=== PATIENT | male | born 1930 | race Asian ===

== ENCOUNTER 2019-11-04 19:37 | Inpatient (IN) | payer MEDICARE, OTHER ==
[~2019-11-04] VITALS: Ht 152.4 cm; Wt 57.1 kg
[2019-11-04] MEDS ORDERED: ROSU20TA23 PO (19:53)
[2019-11-04] MEDS ORDERED: METF-960 PO (19:53)
[2019-11-04] MEDS ORDERED: ASPI-1111 PO (19:53)
[2019-11-04] MEDS ORDERED: FINA-27 PO (19:53)
[2019-11-04] MEDS ORDERED: MIRT-89 PO (19:53)
[2019-11-04] MEDS ORDERED: ISOS20TA7 PO (19:53)
[2019-11-04] MEDS ORDERED: TAMS-13 PO (19:53)
[2019-11-04] MEDS ORDERED: METO25 PO (19:53)
[2019-11-04 20:19] LABS: BASOPHILS % (AUTO) 0.3 % (0.0-2.0); EOSINOPHILS % (AUTO) 0 % (1.0-6.0); HEMATOCRIT 31.1 % (41-53); HEMOGLOBIN 10.3 g/dL (13.5-17.5); LYMPHOCYTES # (AUTO) 0.5 K/uL (1.0-4.8); LYMPHOCYTES % (AUTO) 11.6 % (22.0-44.0); MEAN CORPUSCULAR HEMOGLOBIN 31.2 pg (26.0-34.0); MEAN CORPUSCULAR VOLUME 95 fL (80-100); MONOCYTES # (AUTO) 0.5 K/uL (0.1-1.0); MONOCYTES % (AUTO) 11.2 % (2.0-9.0); NEUTROPHILS # (AUTO) 3.2 K/uL (1.8-7.7); NEUTROPHILS % (AUTO) 76.9 % (40.0-70.0); PLATELET COUNT (AUTO) 164 K/uL (150-450); RED BLOOD CELL COUNT(AUTO) 3.29 MIL/uL (4.50-5.90); RED CELL DISTRIBUTION WIDTH 14.8 % (11.5-14.5)
[2019-11-04 20:29] LABS: ANION GAP 12 mmol/L (8-16); CALCIUM, TOTAL 9.2 mg/dL (8.8-10.5); CARBON DIOXIDE 22 mmol/L (22-29); CHLORIDE 103 mmol/L (98-107); CREATININE 2.64 mg/dL (0.60-1.30); GLOMERULAR FILTR. RATE CALC 23 mL/min (>60); GLUCOSE,RANDOM 108 mg/dL (70-110); SODIUM SERUM 137 mmol/L (136-145); UREA NITROGEN, BLOOD 37 mg/dL (7-18)
[2019-11-04 20:35] LABS: ALANINE AMINOTRANSFERASE 38 U/L (12-78); ALBUMIN 3.4 g/dL (3.4-5.0); ALKALINE PHOSPHATASE 72 U/L (46-116); ASPARTATE AMINOTRANSFERASE 42 U/L (15-37)
[2019-11-04 20:39] LABS: B-TYPE NATRIURETIC PEPTIDE 145 pg/mL (0-100)
[2019-11-04 20:49] LABS: BILIRUBIN,TOTAL 0.3 mg/dL (0.1-1.0)
[2019-11-04 20:59] LABS: LACTIC ACID 2.1 mmol/L (0.4-2.0)
[2019-11-04] MEDS ORDERED: ZOLPIDEM TARTRATE 5 MG TABLET PO PRN (22:30)
[2019-11-04] MEDS ORDERED: ONDANSETRON HCL 4 MG/2 ML VIAL IVP PRN (22:30)
[2019-11-04] MEDS ORDERED: HYDROXYCHLOROQUINE SULFATE 200 MG TABLET PO SCH (22:30)
[2019-11-04] MEDS ORDERED: HYDROCODONE/ACETAMINOPHEN 5-325 MG TABLET PO PRN (22:30)
[2019-11-04] MEDS ORDERED: MAGNESIUM HYDROXIDE SUSPENSION 30 ML UDCUP PO PRN (22:30)
[2019-11-04] MEDS ORDERED: DEXTROSE 50%-WATER 25 GM/50 ML SYRINGE IVP PRN (22:30)
[2019-11-04] MEDS ORDERED: BISACODYL 10 MG RECTAL RECTAL SUPPOSITORY PR PRN (22:30)
[2019-11-04 22:42] LABS: APPEARANCE,URINE CLEAR (CLEAR); BILIRUBIN,URINE NEGATIVE (NEGATIVE); GLUCOSE, URINE (UA) NEGATIVE (NEGATIVE); KETONES,URINE NEGATIVE (NEGATIVE); LEUKOCYTE ESTERASE ,URINE NEGATIVE (NEGATIVE); NITRATE,URINE NEGATIVE (NEGATIVE); OCCULT BLOOD,URINE LARGE (NEGATIVE); PH,URINE 6.5 (5.0-8.0); PROTEIN,URINE SEE CONFIRM (NEGATIVE); UROBILINOGEN,URINE 0.2 mg/dL (<=1.0)
[2019-11-04 22:53] LABS: SULFOSALICYLIC ACID,URINE 3+ (Negative)
[2019-11-04 22:55] LABS: WBC,URINE 0-2 /HPF (0-5)
[2019-11-04 22:56] LABS: BACTERIA,URINE Rare /HPF (None Seen); SQUAMOUS EPITHELIAL CELL,UR Rare /LPF (None Seen)
[2019-11-04 22:58] LABS: D-DIMER 0.55 mg/L FEU (0.00-0.50)
[2019-11-04 23:09] LABS: GLUCOMETER DEV NAME(LOC) AHU.; GLUCOSE,POINT OF CARE 111 MG/DL (70-110)
[2019-11-04 23:10] LABS: C-REACTIVE PROTEIN QUANT 1.64 mg/dL (0.00-0.30)
[2019-11-05] VITALS (7 sets, daily range): BP systolic 95–137; BP diastolic 48–75
[2019-11-05] MEDS: HEPARIN SODIUM,PORCINE 5,000 UNITS/ML VIAL SQ SCH ×4 (00:24→23:58)
[2019-11-05] MEDS: ACETAMINOPHEN 325 MG TABLET PO PRN (01:14)
[2019-11-05 06:51] LABS: GLUCOMETER DEV NAME(LOC) 5N.1; GLUCOSE,POINT OF CARE 82 MG/DL (70-110)
[2019-11-05 07:09] LABS: BASOPHILS % (AUTO) 0.4 % (0.0-2.0); EOSINOPHILS % (AUTO) 0.2 % (1.0-6.0); HEMATOCRIT 29.9 % (41-53); HEMOGLOBIN 9.9 g/dL (13.5-17.5); LYMPHOCYTES # (AUTO) 1.3 K/uL (1.0-4.8); LYMPHOCYTES % (AUTO) 36.3 % (22.0-44.0); MEAN CORPUSCULAR HEMOGLOBIN 31.7 pg (26.0-34.0); MEAN CORPUSCULAR HGB CONC 33.2 G/dL (31.0-37.0); MEAN CORPUSCULAR VOLUME 96 fL (80-100); MONOCYTES # (AUTO) 0.7 K/uL (0.1-1.0); MONOCYTES % (AUTO) 18.1 % (2.0-9.0); NEUTROPHILS # (AUTO) 1.6 K/uL (1.8-7.7); PLATELET COUNT (AUTO) 146 K/uL (150-450); RED BLOOD CELL COUNT(AUTO) 3.13 MIL/uL (4.50-5.90); RED CELL DISTRIBUTION WIDTH 14.3 % (11.5-14.5)
[2019-11-05 07:22] LABS: CALCIUM, TOTAL 8.9 mg/dL (8.8-10.5); CREATININE 2.31 mg/dL (0.60-1.30); POTASSIUM 3.8 mmol/L (3.5-5.1)
[2019-11-05] MEDS: ROSUVASTATIN CALCIUM 20 MG TABLET PO SCH (08:46)
[2019-11-05] MEDS: ASPIRIN 81 MG EC TABLET PO SCH (08:46)
[2019-11-05] MEDS: THIAMINE HCL 100 MG/ML 2ML VIAL IVP SCH ×2 (08:46→21:58)
[2019-11-05] MEDS: DOCUSATE SODIUM 100 MG CAPSULE PO SCH ×2 (08:46→21:57)
[2019-11-05] MEDS: ISOSORBIDE MONONITRATE 30 MG ER TABLET PO SCH (08:47)
[2019-11-05] MEDS: PANTOPRAZOLE SODIUM 40 MG DR TABLET PO SCH (08:47)
[2019-11-05] MEDS: ASCORBIC ACID 500 MG TABLET PO SCH ×3 (08:47→21:57)
[2019-11-05] MEDS: AZITHROMYCIN 500 MG TABLET PO SCH (08:48)
[2019-11-05] MEDS ORDERED: HYDROXYCHLOROQUINE SULFATE 200 MG TABLET PO ONE (10:30)
[2019-11-05 11:45] LABS: GLUCOMETER DEV NAME(LOC) 5S.2A; GLUCOSE,POINT OF CARE 113 MG/DL (70-110)
[2019-11-05 12:07] LABS: ABG A-A DIFF O2 46.7 mmHg (10-20.0); ABG CARBOXYHEMOGLOBIN 0.1 % (0.0-1.5); ABG HCO3 20.3 mmol/L (22.0-26.0); ABG METHEMOGLOBIN 0.3 % (0.0-1.5); ABG OXYGEN CONTENT 13.7 mL/dL (15.0-23.0); ABG OXYHEMOGLOBIN 93.6 % (94.0-100.0); ABG PCO2 29 mmHg (35-45); ABG TOTAL HEMOGLOBIN 10.4 G/dL (12.0-18.0); O2 DEVICE,BLOOD GAS ROOM AIR (ROOM AIR); PO2, ARTERIAL BG 68.1 mmHg (71.0-79.0); SITE, BLOOD GAS RT RADIAL; SOURCE, BLOOD GAS ARTERIAL; TEMPERATURE, FAHRENHEIT, BG 98.6 FAHREN (96.0-98.6)
[2019-11-05] MEDS ORDERED: SODIUM CHLORIDE 0.9% 500 ML IV ONE (15:23)
[2019-11-05] MEDS: CefTRIAXone 1 GM/DEXTROSE 50 ML IV SCH (15:51)
[2019-11-05] MEDS: HYDROXYCHLOROQUINE SULFATE 200 MG TABLET PO SCH (21:57)
[2019-11-06 04:41] VITALS: BP 113/82
[2019-11-06 07:19] LABS: BASOPHILS % (AUTO) 0.4 % (0.0-2.0); EOSINOPHILS % (AUTO) 0.4 % (1.0-6.0); HEMATOCRIT 30.4 % (41-53); LYMPHOCYTES # (AUTO) 1.2 K/uL (1.0-4.8); LYMPHOCYTES % (AUTO) 30.4 % (22.0-44.0); MEAN CORPUSCULAR HEMOGLOBIN 31.1 pg (26.0-34.0); MEAN CORPUSCULAR HGB CONC 32.8 G/dL (31.0-37.0); MEAN CORPUSCULAR VOLUME 95 fL (80-100); MONOCYTES # (AUTO) 0.5 K/uL (0.1-1.0); MONOCYTES % (AUTO) 12.2 % (2.0-9.0); NEUTROPHILS # (AUTO) 2.3 K/uL (1.8-7.7); NEUTROPHILS % (AUTO) 56.6 % (40.0-70.0); PLATELET COUNT (AUTO) 154 K/uL (150-450); RED BLOOD CELL COUNT(AUTO) 3.21 MIL/uL (4.50-5.90); RED CELL DISTRIBUTION WIDTH 14.8 % (11.5-14.5)
[2019-11-06 07:31] LABS: ALBUMIN 3.1 g/dL (3.4-5.0); BILIRUBIN,TOTAL 0.2 mg/dL (0.1-1.0); C-REACTIVE PROTEIN QUANT 3.67 mg/dL (0.00-0.30); CALCIUM, TOTAL 8.8 mg/dL (8.8-10.5); CREATININE 2.34 mg/dL (0.60-1.30); POTASSIUM 3.7 mmol/L (3.5-5.1); TOTAL PROTEIN, SERUM 7.5 g/dL (6.4-8.2)
[2019-11-06 07:39] VITALS: BP 137/71
[2019-11-06] MEDS: DOCUSATE SODIUM 100 MG CAPSULE PO SCH ×2 (09:15→21:06)
[2019-11-06] MEDS: AZITHROMYCIN 500 MG TABLET PO SCH (09:15)
[2019-11-06] MEDS: ISOSORBIDE MONONITRATE 30 MG ER TABLET PO SCH (09:15)
[2019-11-06] MEDS: HYDROXYCHLOROQUINE SULFATE 200 MG TABLET PO SCH ×2 (09:15→21:05)
[2019-11-06] MEDS: ROSUVASTATIN CALCIUM 20 MG TABLET PO SCH (09:15)
[2019-11-06] MEDS: THIAMINE HCL 100 MG/ML 2ML VIAL IVP SCH ×2 (09:15→21:06)
[2019-11-06] MEDS: HEPARIN SODIUM,PORCINE 5,000 UNITS/ML VIAL SQ SCH ×2 (09:15→16:00)
[2019-11-06] MEDS: ASPIRIN 81 MG EC TABLET PO SCH (09:15)
[2019-11-06] MEDS: PANTOPRAZOLE SODIUM 40 MG DR TABLET PO SCH (09:16)
[2019-11-06] MEDS: ACETAMINOPHEN 325 MG TABLET PO PRN ×3 (09:16→21:05)
[2019-11-06] MEDS: ASCORBIC ACID 500 MG TABLET PO SCH ×3 (09:16→21:05)
[2019-11-06] MEDS: INSULIN LISPRO 100 UNITS/ML SQ PRN (11:48)
[2019-11-06 12:22] VITALS: BP 116/84
[2019-11-06] MEDS: CefTRIAXone 1 GM/DEXTROSE 50 ML IV SCH (15:59)
[2019-11-06 16:14] VITALS: BP 114/54
[2019-11-06 17:43] LABS: GLUCOMETER DEV NAME(LOC) 5S.2A; GLUCOSE,POINT OF CARE 90 MG/DL (70-110)
[2019-11-06 17:43] LABS: GLUCOMETER DEV NAME(LOC) 5N.1; GLUCOSE,POINT OF CARE 92 MG/DL (70-110)
[2019-11-06 17:43] LABS: GLUCOMETER DEV NAME(LOC) 5N.1; GLUCOSE,POINT OF CARE 108 MG/DL (70-110)
[2019-11-06 17:44] LABS: GLUCOMETER DEV NAME(LOC) 5N.1; GLUCOSE,POINT OF CARE 119 MG/DL (70-110)
[2019-11-06 17:44] LABS: GLUCOMETER DEV NAME(LOC) 5N.1; GLUCOSE,POINT OF CARE 114 MG/DL (70-110)
[2019-11-06 20:42] VITALS: BP 134/62
[2019-11-07 00:30] VITALS: BP 108/58
[2019-11-07] MEDS: HEPARIN SODIUM,PORCINE 5,000 UNITS/ML VIAL SQ SCH ×3 (00:46→14:47)
[2019-11-07 05:10] VITALS: BP 118/59
[2019-11-07] MEDS: ACETAMINOPHEN 325 MG TABLET PO PRN ×2 (05:54→08:03)
[2019-11-07 06:59] LABS: BASOPHILS % (AUTO) 0.3 % (0.0-2.0); EOSINOPHILS % (AUTO) 0.1 % (1.0-6.0); HEMATOCRIT 32.5 % (41-53); HEMOGLOBIN 10.7 g/dL (13.5-17.5); LYMPHOCYTES # (AUTO) 1.1 K/uL (1.0-4.8); LYMPHOCYTES % (AUTO) 24.2 % (22.0-44.0); MEAN CORPUSCULAR HEMOGLOBIN 31.1 pg (26.0-34.0); MEAN CORPUSCULAR HGB CONC 32.9 G/dL (31.0-37.0); MEAN CORPUSCULAR VOLUME 95 fL (80-100); MONOCYTES # (AUTO) 0.5 K/uL (0.1-1.0); MONOCYTES % (AUTO) 10.7 % (2.0-9.0); NEUTROPHILS % (AUTO) 64.7 % (40.0-70.0); PLATELET COUNT (AUTO) 158 K/uL (150-450); RED BLOOD CELL COUNT(AUTO) 3.43 MIL/uL (4.50-5.90); RED CELL DISTRIBUTION WIDTH 14.7 % (11.5-14.5)
[2019-11-07 07:19] LABS: C-REACTIVE PROTEIN QUANT 5.31 mg/dL (0.00-0.30); CREATININE 2.76 mg/dL (0.60-1.30); MAGNESIUM 2.1 mg/dL (1.80-2.40); POTASSIUM 4.1 mmol/L (3.5-5.1)
[2019-11-07] MEDS: ISOSORBIDE MONONITRATE 30 MG ER TABLET PO SCH (08:01)
[2019-11-07] MEDS: THIAMINE HCL 100 MG/ML 2ML VIAL IVP SCH ×2 (08:01→22:24)
[2019-11-07] MEDS: ROSUVASTATIN CALCIUM 20 MG TABLET PO SCH (08:01)
[2019-11-07] MEDS: AZITHROMYCIN 500 MG TABLET PO SCH (08:02)
[2019-11-07] MEDS: ASCORBIC ACID 500 MG TABLET PO SCH ×3 (08:02→22:24)
[2019-11-07] MEDS: HYDROXYCHLOROQUINE SULFATE 200 MG TABLET PO SCH ×2 (08:02→22:24)
[2019-11-07] MEDS: DOCUSATE SODIUM 100 MG CAPSULE PO SCH ×2 (08:02→22:24)
[2019-11-07] MEDS: PANTOPRAZOLE SODIUM 40 MG DR TABLET PO SCH (08:02)
[2019-11-07] MEDS: ASPIRIN 81 MG EC TABLET PO SCH (08:02)
[2019-11-07 08:10] LABS: GLUCOMETER DEV NAME(LOC) 5S.2A; GLUCOSE,POINT OF CARE 99 MG/DL (70-110)
[2019-11-07 08:10] LABS: GLUCOMETER DEV NAME(LOC) 5S.2A; GLUCOSE,POINT OF CARE 110 MG/DL (70-110)
[2019-11-07 08:30] VITALS: BP_SYST 11; BP_SYST 111; BP_DIAS 13; BP_DIAS 73
[2019-11-07 08:48] LABS: ERYTHROCYTE SEDIMENTATION RATE 75 MM/HR (0-15)
[2019-11-07] MEDS ORDERED: SODIUM CHLORIDE 0.9% 100 ML ONE (11:45)
[2019-11-07] MEDS: ZINC GLUCONATE 50 MG TABLET PO SCH (11:49)
[2019-11-07] MEDS: INSULIN LISPRO 100 UNITS/ML SQ PRN (12:05)
[2019-11-07 12:30] VITALS: BP_SYST 115; BP_SYST 120; BP_DIAS 64; BP_DIAS 7
[2019-11-07] MEDS ORDERED: SODIUM CHLORIDE 0.9% 250 ML IV ONE (14:37)
[2019-11-07] MEDS: CefTRIAXone 1 GM/DEXTROSE 50 ML IV SCH (14:47)
[2019-11-07 15:58] VITALS: BP 120/64
[2019-11-07 21:30] VITALS: BP 110/65
[2019-11-08 00:32] VITALS: BP 94/63
[2019-11-08] MEDS: ACETAMINOPHEN 325 MG TABLET PO PRN (00:57)
[2019-11-08 05:26] LABS: GLUCOMETER DEV NAME(LOC) 5S.2A; GLUCOSE,POINT OF CARE 119 MG/DL (70-110)
[2019-11-08 05:54] VITALS: BP 98/62
[2019-11-08 06:50] LABS: GLUCOMETER DEV NAME(LOC) 5N.1; GLUCOSE,POINT OF CARE 113 MG/DL (70-110)
[2019-11-08 06:50] LABS: GLUCOMETER DEV NAME(LOC) 5N.1; GLUCOSE,POINT OF CARE 103 MG/DL (70-110)
[2019-11-08 06:50] LABS: GLUCOMETER DEV NAME(LOC) 5N.1; GLUCOSE,POINT OF CARE 109 MG/DL (70-110)
[2019-11-08 08:38] LABS: BASOPHILS % (AUTO) 0.1 % (0.0-2.0); EOSINOPHILS % (AUTO) 0.1 % (1.0-6.0); HEMATOCRIT 28.8 % (41-53); HEMOGLOBIN 9.4 g/dL (13.5-17.5); LYMPHOCYTES # (AUTO) 1.2 K/uL (1.0-4.8); LYMPHOCYTES % (AUTO) 20.5 % (22.0-44.0); MEAN CORPUSCULAR HEMOGLOBIN 31.2 pg (26.0-34.0); MEAN CORPUSCULAR HGB CONC 32.6 G/dL (31.0-37.0); MEAN CORPUSCULAR VOLUME 96 fL (80-100); MONOCYTES # (AUTO) 0.6 K/uL (0.1-1.0); MONOCYTES % (AUTO) 11.4 % (2.0-9.0); NEUTROPHILS # (AUTO) 3.8 K/uL (1.8-7.7); NEUTROPHILS % (AUTO) 67.9 % (40.0-70.0); PLATELET COUNT (AUTO) 150 K/uL (150-450); RED BLOOD CELL COUNT(AUTO) 3.01 MIL/uL (4.50-5.90)
[2019-11-08] MEDS: ZINC GLUCONATE 50 MG TABLET PO SCH (08:50)
[2019-11-08] MEDS: ASCORBIC ACID 500 MG TABLET PO SCH ×3 (08:50→22:17)
[2019-11-08] MEDS: DOCUSATE SODIUM 100 MG CAPSULE PO SCH ×2 (08:51→22:17)
[2019-11-08] MEDS: HYDROXYCHLOROQUINE SULFATE 200 MG TABLET PO SCH ×2 (08:51→22:17)
[2019-11-08] MEDS: PANTOPRAZOLE SODIUM 40 MG DR TABLET PO SCH (08:51)
[2019-11-08] MEDS: AZITHROMYCIN 500 MG TABLET PO SCH (08:51)
[2019-11-08] MEDS: ISOSORBIDE MONONITRATE 30 MG ER TABLET PO SCH (08:51)
[2019-11-08] MEDS: ASPIRIN 81 MG EC TABLET PO SCH (08:51)
[2019-11-08] MEDS: ROSUVASTATIN CALCIUM 20 MG TABLET PO SCH (08:51)
[2019-11-08] MEDS: THIAMINE HCL 100 MG/ML 2ML VIAL IVP SCH ×2 (08:52→22:17)
[2019-11-08 09:13] VITALS: BP 107/66
[2019-11-08 09:16] LABS: ALBUMIN 2.9 g/dL (3.4-5.0); BILIRUBIN,TOTAL 0.2 mg/dL (0.1-1.0); C-REACTIVE PROTEIN QUANT 6.91 mg/dL (0.00-0.30); CALCIUM, TOTAL 8.5 mg/dL (8.8-10.5); CREATININE 4.28 mg/dL (0.60-1.30); POTASSIUM 4.2 mmol/L (3.5-5.1); TOTAL PROTEIN, SERUM 7.2 g/dL (6.4-8.2)
[2019-11-08 10:06] LABS: ERYTHROCYTE SEDIMENTATION RATE 88 MM/HR (0-15)
[2019-11-08 11:09] LABS: LEGIONELLA PNEUMO AG URINE Negative (Negative); ORGANISM ID Not indicated.; S PNEUMO SOURCE Urine; STREP PNEUMONIAE AG URINE Negative (Negative); STREP.PNEUMO BODY FLUID CULT. Not indicated.
[2019-11-08 12:30] VITALS: BP 102/70
[2019-11-08] MEDS: CefTRIAXone 1 GM/DEXTROSE 50 ML IV SCH (12:59)
[2019-11-08 17:17] VITALS: BP 112/67
[2019-11-08 19:57] LABS: GLUCOMETER DEV NAME(LOC) 5N.2; GLUCOSE,POINT OF CARE 107 MG/DL (70-110)
[2019-11-08 22:32] VITALS: BP 104/48
[2019-11-09] MEDS: ACETAMINOPHEN 325 MG TABLET PO PRN (00:27)
[2019-11-09 00:32] VITALS: BP 107/71
[2019-11-09 05:47] VITALS: BP 121/66
[2019-11-09 07:57] LABS: CALCIUM, TOTAL 8.6 mg/dL (8.8-10.5); CREATININE 5.13 mg/dL (0.60-1.30); POTASSIUM 4.1 mmol/L (3.5-5.1)
[2019-11-09 09:00] VITALS: BP 115/62
[2019-11-09] MEDS: DOCUSATE SODIUM 100 MG CAPSULE PO SCH ×2 (09:03→20:49)
[2019-11-09] MEDS: HYDROXYCHLOROQUINE SULFATE 200 MG TABLET PO SCH (09:03)
[2019-11-09] MEDS: ISOSORBIDE MONONITRATE 30 MG ER TABLET PO SCH (09:03)
[2019-11-09] MEDS: THIAMINE HCL 100 MG/ML 2ML VIAL IVP SCH ×2 (09:03→20:47)
[2019-11-09] MEDS: ZINC GLUCONATE 50 MG TABLET PO SCH (09:03)
[2019-11-09] MEDS: ROSUVASTATIN CALCIUM 20 MG TABLET PO SCH (09:04)
[2019-11-09] MEDS: PANTOPRAZOLE SODIUM 40 MG DR TABLET PO SCH (09:04)
[2019-11-09] MEDS: ASCORBIC ACID 500 MG TABLET PO SCH ×3 (09:04→20:49)
[2019-11-09] MEDS: ASPIRIN 81 MG EC TABLET PO SCH (09:06)
[2019-11-09 11:17] VITALS: BP 102/72
[2019-11-09] MEDS: INSULIN LISPRO 100 UNITS/ML SQ PRN ×2 (12:20→18:14)
[2019-11-09] MEDS: SODIUM CHLORIDE 0.45% 1,000 ML IV SCH (12:23)
[2019-11-09 16:16] VITALS: BP 98/52
[2019-11-09] MEDS: CefTRIAXone 1 GM/DEXTROSE 50 ML IV SCH (17:00)
[2019-11-09 21:00] VITALS: BP 109/55
[2019-11-10] VITALS: BP 102/47
[2019-11-10] MEDS: SODIUM CHLORIDE 0.45% 1,000 ML IV SCH (02:27)
[2019-11-10 03:21] LABS: ABG A-A DIFF O2 376.2 mmHg (10-20.0); ABG BASE EXCESS -11.9 mmol/L (-2.0-3.0); ABG CARBOXYHEMOGLOBIN 0.5 % (0.0-1.5); ABG HCO3 15.7 mmol/L (22.0-26.0); ABG METHEMOGLOBIN 0.3 % (0.0-1.5); ABG OXYGEN SATURATION 99.6 % (95.0-98.0); ABG OXYHEMOGLOBIN 98.8 % (94.0-100.0); ABG PCO2 20 mmHg (35-45); ABG PH 7.416 (7.35-7.450); PO2, ARTERIAL BG 173.8 mmHg (71.0-79.0); SOURCE, BLOOD GAS ARTERIAL; TEMPERATURE, FAHRENHEIT, BG 97.8 FAHREN (96.0-98.6)
[2019-11-10 03:22] LABS: ABG TOTAL HEMOGLOBIN 6.9 G/dL (12.0-18.0); O2 DEVICE,BLOOD GAS NON REBREATHER (ROOM AIR); SITE, BLOOD GAS LFT RADIAL
[2019-11-10 04:47] LABS: CALCIUM, TOTAL 8.1 mg/dL (8.8-10.5); CREATININE 6.33 mg/dL (0.60-1.30); POTASSIUM 4.8 mmol/L (3.5-5.1)
[2019-11-10 05:24] LABS: C-REACTIVE PROTEIN QUANT 13.78 mg/dL (0.00-0.30)
[2019-11-10 05:26] LABS: MAGNESIUM 2.7 mg/dL (1.80-2.40); PHOSPHORUS 7.3 mg/dL (2.5-4.9)
[2019-11-10 06:00] LABS: GLUCOMETER DEV NAME(LOC) 5N.1; GLUCOSE,POINT OF CARE 108 MG/DL (70-110)
[2019-11-10 06:00] LABS: GLUCOMETER DEV NAME(LOC) 5N.1; GLUCOSE,POINT OF CARE 193 MG/DL (70-110)
[2019-11-10 06:00] LABS: GLUCOMETER DEV NAME(LOC) 5N.1; GLUCOSE,POINT OF CARE 121 MG/DL (70-110)
[2019-11-10 06:01] LABS: GLUCOMETER DEV NAME(LOC) 5N.1; GLUCOSE,POINT OF CARE 155 MG/DL (70-110)
[2019-11-10 06:01] LABS: GLUCOMETER DEV NAME(LOC) 5N.1; GLUCOSE,POINT OF CARE 147 MG/DL (70-110)
[2019-11-10 07:24] LABS: GLUCOSE,POINT OF CARE 135 MG/DL (70-110)
[2019-11-10 07:57] LABS: D-DIMER 0.53 mg/L FEU (0.00-0.50); PROTHROMBIN TIME 10.2 SEC (9.4-11.6)
[2019-11-10 08:00] VITALS: BP 142/85
[2019-11-10] MEDS: ASCORBIC ACID 500 MG TABLET PO SCH ×4 (08:31→21:00)
[2019-11-10] MEDS: ASPIRIN 81 MG EC TABLET PO SCH (08:31)
[2019-11-10] MEDS: PANTOPRAZOLE SODIUM 40 MG DR TABLET PO SCH (08:31)
[2019-11-10] MEDS: DOCUSATE SODIUM 100 MG CAPSULE PO SCH ×3 (08:31→21:00)
[2019-11-10] MEDS: ROSUVASTATIN CALCIUM 20 MG TABLET PO SCH (08:31)
[2019-11-10] MEDS: THIAMINE HCL 100 MG/ML 2ML VIAL IVP SCH ×2 (08:40→20:52)
[2019-11-10] MEDS: ZINC GLUCONATE 50 MG TABLET PO SCH (09:00)
[2019-11-10] MEDS ORDERED: SODIUM BICARBONATE [ADULT] 8.4% 50 MEQ/50 ML SYRINGE IVP ONE (09:00)
[2019-11-10] MEDS: SODIUM BICARBONATE 150 MEQ in DEXTROSE 5%-WATER 1,000 ML IV SCH (09:16)
[2019-11-10 10:43] LABS: BASOPHILS % (AUTO) 0.2 % (0.0-2.0); EOSINOPHILS % (AUTO) 0 % (1.0-6.0); LYMPHOCYTES # (AUTO) 0.9 K/uL (1.0-4.8); LYMPHOCYTES % (AUTO) 9.1 % (22.0-44.0); MEAN CORPUSCULAR HEMOGLOBIN 31.1 pg (26.0-34.0); MEAN CORPUSCULAR HGB CONC 33.4 G/dL (31.0-37.0); MEAN CORPUSCULAR VOLUME 93 fL (80-100); MONOCYTES # (AUTO) 1.1 K/uL (0.1-1.0); MONOCYTES % (AUTO) 11.5 % (2.0-9.0); NEUTROPHILS # (AUTO) 7.9 K/uL (1.8-7.7); NEUTROPHILS % (AUTO) 79.2 % (40.0-70.0); PLATELET COUNT (AUTO) 211 K/uL (150-450); RED BLOOD CELL COUNT(AUTO) 2.03 MIL/uL (4.50-5.90); RED CELL DISTRIBUTION WIDTH 14.8 % (11.5-14.5)
[2019-11-10 10:51] LABS: HEMOGLOBIN 6.3 g/dL (13.5-17.5)
[2019-11-10 10:52] LABS: HEMATOCRIT 18.9 % (41-53)
[2019-11-10] MEDS ORDERED: SODIUM CHLORIDE 0.9% 250 ML IV ONE (11:51)
[2019-11-10 12:00] VITALS: BP 162/76
[2019-11-10] MEDS: ISOSORBIDE MONONITRATE 30 MG ER TABLET PO SCH (14:24)
[2019-11-10 16:21] LABS: ALBUMIN 2.5 g/dL (3.4-5.0); BILIRUBIN,TOTAL 0.3 mg/dL (0.1-1.0); CALCIUM, TOTAL 7.3 mg/dL (8.8-10.5); CREATININE 5.77 mg/dL (0.60-1.30); POTASSIUM 3.9 mmol/L (3.5-5.1); TOTAL PROTEIN, SERUM 6.7 g/dL (6.4-8.2)
[2019-11-10] MEDS: CefTRIAXone 1 GM/DEXTROSE 50 ML IV SCH (16:52)
[2019-11-10] MEDS: INSULIN LISPRO 100 UNITS/ML SQ PRN (17:24)
[2019-11-10 18:00] VITALS: BP 173/86
[2019-11-10 20:00] VITALS: BP 149/73
[2019-11-10] MEDS: ACETAMINOPHEN 325 MG TABLET PO PRN (20:52)
[2019-11-10 20:58] LABS: GLUCOMETER DEV NAME(LOC) 5N.2; GLUCOSE,POINT OF CARE 126 MG/DL (70-110)
[2019-11-10 20:59] LABS: GLUCOMETER DEV NAME(LOC) 5N.2; GLUCOSE,POINT OF CARE 111 MG/DL (70-110)
[2019-11-10] MEDS: MORPHINE SULFATE 2 MG/ML SYRINGE IVP PRN (21:24)
[2019-11-11] VITALS (7 sets, daily range): BP systolic 94–148; BP diastolic 58–95
[2019-11-11] MEDS: SODIUM BICARBONATE 150 MEQ in DEXTROSE 5%-WATER 1,000 ML IV SCH (00:21)
[2019-11-11 08:01] LABS: GLUCOSE,POINT OF CARE 125 MG/DL (70-110)
[2019-11-11 08:01] LABS: GLUCOSE,POINT OF CARE 152 MG/DL (70-110)
[2019-11-11 08:01] LABS: GLUCOSE,POINT OF CARE 146 MG/DL (70-110)
[2019-11-11 08:03] LABS: GLUCOSE,POINT OF CARE 139 MG/DL (70-110)
[2019-11-11 08:16] LABS: EOSINOPHILS % (AUTO) 0 % (1.0-6.0); HEMATOCRIT 21.2 % (41-53); HEMOGLOBIN 7.1 g/dL (13.5-17.5); LYMPHOCYTES # (AUTO) 0.4 K/uL (1.0-4.8); LYMPHOCYTES % (AUTO) 3.5 % (22.0-44.0); MEAN CORPUSCULAR HEMOGLOBIN 28.9 pg (26.0-34.0); MEAN CORPUSCULAR HGB CONC 33.4 G/dL (31.0-37.0); MEAN CORPUSCULAR VOLUME 87 fL (80-100); MONOCYTES # (AUTO) 0.7 K/uL (0.1-1.0); MONOCYTES % (AUTO) 6.1 % (2.0-9.0); PLATELET COUNT (AUTO) 211 K/uL (150-450); RED BLOOD CELL COUNT(AUTO) 2.45 MIL/uL (4.50-5.90); RED CELL DISTRIBUTION WIDTH 18.4 % (11.5-14.5)
[2019-11-11 08:27] LABS: NEUTROPHILS % (AUTO) 90.4 % (40.0-70.0)
[2019-11-11 08:28] LABS: ALBUMIN 2.3 g/dL (3.4-5.0); BILIRUBIN,TOTAL 0.6 mg/dL (0.1-1.0); CALCIUM, TOTAL 7.2 mg/dL (8.8-10.5); CREATININE 5.2 mg/dL (0.60-1.30); MAGNESIUM 2.1 mg/dL (1.80-2.40); PHOSPHORUS 3.9 mg/dL (2.5-4.9); TOTAL PROTEIN, SERUM 6.4 g/dL (6.4-8.2)
[2019-11-11 08:30] LABS: POTASSIUM 2.9 mmol/L (3.5-5.1)
[2019-11-11] MEDS: ASPIRIN 81 MG EC TABLET PO SCH (09:00)
[2019-11-11] MEDS: PANTOPRAZOLE SODIUM 40 MG DR TABLET PO SCH (09:00)
[2019-11-11] MEDS: ROSUVASTATIN CALCIUM 20 MG TABLET PO SCH (09:00)
[2019-11-11] MEDS: DOCUSATE SODIUM 100 MG CAPSULE PO SCH ×2 (09:00→20:20)
[2019-11-11] MEDS: ASCORBIC ACID 500 MG TABLET PO SCH ×3 (09:00→20:20)
[2019-11-11] MEDS: ISOSORBIDE MONONITRATE 30 MG ER TABLET PO SCH (09:25)
[2019-11-11] MEDS: ZINC GLUCONATE 50 MG TABLET PO SCH (09:25)
[2019-11-11] MEDS: THIAMINE HCL 100 MG/ML 2ML VIAL IVP SCH ×2 (09:26→20:19)
[2019-11-11] MEDS ORDERED: SODIUM CHLORIDE 0.9% 500 ML IV ONE (10:05)
[2019-11-11] MEDS: POTASSIUM CHL 10 MEQ/WATER 50 ML IV SCH ×3 (11:15→13:47)
[2019-11-11] MEDS ORDERED: SODIUM CHLORIDE 0.9% 1,000 ML IV SCH (14:30)
[2019-11-11 15:18] LABS: APPEARANCE,URINE CLEAR (CLEAR); BILIRUBIN,URINE NEGATIVE (NEGATIVE); GLUCOSE, URINE (UA) NEGATIVE (NEGATIVE); KETONES,URINE NEGATIVE (NEGATIVE); LEUKOCYTE ESTERASE ,URINE NEGATIVE (NEGATIVE); NITRATE,URINE NEGATIVE (NEGATIVE); OCCULT BLOOD,URINE MODERATE (NEGATIVE); PH,URINE 7.5 (5.0-8.0); PROTEIN,URINE SEE CONFIRM (NEGATIVE); UROBILINOGEN,URINE 0.2 mg/dL (<=1.0)
[2019-11-11 15:21] LABS: CREATININE,URINE RANDOM 59.3 mg/dL (30.0-125.0); PROTEIN,URINE RANDOM 136 mg/dL (0-11.9); SODIUM,URINE RANDOM 61 mmol/l (20-110); UREA NITROGEN,URINE RANDOM 655 mg/dL (350-1000)
[2019-11-11 15:30] LABS: SULFOSALICYLIC ACID,URINE 2+ (Negative)
[2019-11-11 15:32] LABS: BACTERIA,URINE None Seen /HPF (None Seen); RBC,URINE 0-2 /HPF (0-2); SQUAMOUS EPITHELIAL CELL,UR Few /LPF (None Seen); WBC,URINE 0-2 /HPF (0-5)
[2019-11-11 15:47] LABS: GLUCOSE,POINT OF CARE 129 MG/DL (70-110)
[2019-11-11] MEDS: PIPERACILLIN SODIUM/TAZOBACTAM 2.25 GM in DEXTROSE 5%-WATER 50 ML IV SCH ×2 (16:42→23:18)
[2019-11-11] MEDS: MethylPREDNISolone SOD SUCC 125 MG/2 ML VIAL IVP SCH (23:20)
[2019-11-11] MEDS: LORazepam 2 MG/ML VIAL IVP PRN (23:20)
[2019-11-12] VITALS (11 sets, daily range): BP systolic 98–190; BP diastolic 70–110
[2019-11-12] MEDS: MethylPREDNISolone SOD SUCC 125 MG/2 ML VIAL IVP SCH ×4 (05:58→23:25)
[2019-11-12 06:05] LABS: MEAN CORPUSCULAR HEMOGLOBIN 28.5 pg (26.0-34.0); MEAN CORPUSCULAR HGB CONC 32.3 G/dL (31.0-37.0); MEAN CORPUSCULAR VOLUME 88 fL (80-100); PLATELET COUNT (AUTO) 215 K/uL (150-450); RED BLOOD CELL COUNT(AUTO) 2.32 MIL/uL (4.50-5.90); RED CELL DISTRIBUTION WIDTH 18.9 % (11.5-14.5)
[2019-11-12 06:20] LABS: GLUCOMETER DEV NAME(LOC) 5S.1; GLUCOSE,POINT OF CARE 83 MG/DL (70-110)
[2019-11-12 06:20] LABS: GLUCOMETER DEV NAME(LOC) 5N.2; GLUCOSE,POINT OF CARE 102 MG/DL (70-110)
[2019-11-12 06:21] LABS: GLUCOMETER DEV NAME(LOC) 5N.1; GLUCOSE,POINT OF CARE 130 MG/DL (70-110)
[2019-11-12 06:21] LABS: GLUCOMETER DEV NAME(LOC) 5N.1; GLUCOSE,POINT OF CARE 136 MG/DL (70-110)
[2019-11-12 06:49] LABS: ALBUMIN 2.4 g/dL (3.4-5.0); BILIRUBIN,TOTAL 0.7 mg/dL (0.1-1.0); CALCIUM, TOTAL 7.9 mg/dL (8.8-10.5); CREATININE 4.87 mg/dL (0.60-1.30); POTASSIUM 3.1 mmol/L (3.5-5.1); TOTAL PROTEIN, SERUM 6.8 g/dL (6.4-8.2)
[2019-11-12 07:17] LABS: HEMATOCRIT 20.5 % (41-53); HEMOGLOBIN 6.6 g/dL (13.5-17.5)
[2019-11-12] MEDS: PIPERACILLIN SODIUM/TAZOBACTAM 2.25 GM in DEXTROSE 5%-WATER 50 ML IV SCH ×2 (08:16→17:15)
[2019-11-12] MEDS: ASPIRIN 81 MG EC TABLET PO SCH (08:17)
[2019-11-12] MEDS: DOCUSATE SODIUM 100 MG CAPSULE PO SCH ×2 (08:17→21:00)
[2019-11-12] MEDS: THIAMINE HCL 100 MG/ML 2ML VIAL IVP SCH ×2 (08:17→21:38)
[2019-11-12] MEDS: ROSUVASTATIN CALCIUM 20 MG TABLET PO SCH (08:17)
[2019-11-12] MEDS: ISOSORBIDE MONONITRATE 30 MG ER TABLET PO SCH (08:17)
[2019-11-12] MEDS: PANTOPRAZOLE SODIUM 40 MG DR TABLET PO SCH (08:18)
[2019-11-12] MEDS: ASCORBIC ACID 500 MG TABLET PO SCH ×3 (08:18→23:25)
[2019-11-12] MEDS: ZINC GLUCONATE 50 MG TABLET PO SCH (08:18)
[2019-11-12] MEDS ORDERED: SODIUM CHLORIDE 0.9% 250 ML IV ONE (08:42)
[2019-11-12 09:36] LABS: BAND NEUTROPHILS % (MANUAL) 21 % (0-5); LYMPHOCYTES % (MANUAL) 8 % (22-44); SEGMENTED NEUTROPHILS % 71 % (40-70)
[2019-11-12] MEDS ORDERED: CloNIDine 0.1 MG/24 HOUR PATCH TD SCH (13:00)
[2019-11-12 14:35] LABS: GLUCOMETER DEV NAME(LOC) 5S.1; GLUCOSE,POINT OF CARE 118 MG/DL (70-110)
[2019-11-12] MEDS ORDERED: POTASSIUM CHL 10 MEQ/WATER 50 ML IV ONE ×3 (15:00→21:15)
[2019-11-12 22:03] LABS: GLUCOMETER DEV NAME(LOC) 5N.2; GLUCOSE,POINT OF CARE 138 MG/DL (70-110)
[2019-11-13] VITALS: BP 131/77
[2019-11-13] MEDS: PIPERACILLIN SODIUM/TAZOBACTAM 2.25 GM in DEXTROSE 5%-WATER 50 ML IV SCH ×2 (01:26→07:47)
[2019-11-13 04:00] VITALS: BP 128/83
[2019-11-13] MEDS: MethylPREDNISolone SOD SUCC 125 MG/2 ML VIAL IVP SCH ×4 (05:55→23:54)
[2019-11-13 06:05] LABS: GLUCOMETER DEV NAME(LOC) 5S.1; GLUCOSE,POINT OF CARE 136 MG/DL (70-110)
[2019-11-13 07:12] LABS: GLUCOMETER DEV NAME(LOC) 5N.2; GLUCOSE,POINT OF CARE 153 MG/DL (70-110)
[2019-11-13] MEDS: ROSUVASTATIN CALCIUM 20 MG TABLET PO SCH (07:48)
[2019-11-13] MEDS: ASPIRIN 81 MG EC TABLET PO SCH (07:48)
[2019-11-13] MEDS: ZINC GLUCONATE 50 MG TABLET PO SCH (07:48)
[2019-11-13] MEDS: ASCORBIC ACID 500 MG TABLET PO SCH ×3 (07:48→21:23)
[2019-11-13] MEDS: THIAMINE HCL 100 MG/ML 2ML VIAL IVP SCH ×2 (07:48→21:24)
[2019-11-13] MEDS: PANTOPRAZOLE SODIUM 40 MG DR TABLET PO SCH (07:48)
[2019-11-13] MEDS: DOCUSATE SODIUM 100 MG CAPSULE PO SCH ×2 (07:48→21:00)
[2019-11-13] MEDS: ISOSORBIDE MONONITRATE 30 MG ER TABLET PO SCH (07:49)
[2019-11-13 07:55] LABS: ALBUMIN 2.3 g/dL (3.4-5.0); BILIRUBIN,TOTAL 1.1 mg/dL (0.1-1.0); CALCIUM, TOTAL 8.5 mg/dL (8.8-10.5); CREATININE 4.6 mg/dL (0.60-1.30); POTASSIUM 3.6 mmol/L (3.5-5.1); TOTAL PROTEIN, SERUM 7.3 g/dL (6.4-8.2)
[2019-11-13 08:00] VITALS: BP 126/69
[2019-11-13] MEDS ORDERED: SODIUM CHLORIDE 0.9% 250 ML IV ONE ×2 (09:28→15:19)
[2019-11-13] MEDS: DEXTROSE 5%-WATER 1,000 ML IV SCH (11:23)
[2019-11-13 11:26] LABS: HEMATOCRIT 27.8 % (41-53); HEMOGLOBIN 9.2 g/dL (13.5-17.5); MEAN CORPUSCULAR HEMOGLOBIN 28.9 pg (26.0-34.0); MEAN CORPUSCULAR HGB CONC 32.9 G/dL (31.0-37.0); MEAN CORPUSCULAR VOLUME 88 fL (80-100); PLATELET COUNT (AUTO) 229 K/uL (150-450); RED BLOOD CELL COUNT(AUTO) 3.17 MIL/uL (4.50-5.90); RED CELL DISTRIBUTION WIDTH 17.4 % (11.5-14.5)
[2019-11-13] MEDS: MORPHINE SULFATE 2 MG/ML SYRINGE IVP PRN ×3 (11:27→21:13)
[2019-11-13 11:31] LABS: BAND NEUTROPHILS % (MANUAL) 19 % (0-5); LYMPHOCYTES % (MANUAL) 6 % (22-44); MONOCYTES % (MANUAL) 4 % (2-9); SEGMENTED NEUTROPHILS % 71 % (40-70)
[2019-11-13 12:00] VITALS: BP 128/70
[2019-11-13] MEDS: MetroNIDAZOLE 500 MG/NACL 100 ML IV SCH ×2 (15:27→21:23)
[2019-11-13 15:50] VITALS: BP 137/66
[2019-11-13] MEDS: CefTAZidime PENTAHYDRATE 1 GM in DEXTROSE 5%-WATER 50 ML IV SCH (17:01)
[2019-11-13] MEDS: INSULIN LISPRO 100 UNITS/ML SQ PRN ×2 (17:53→21:33)
[2019-11-13 18:48] LABS: GLUCOMETER DEV NAME(LOC) 5N.1; GLUCOSE,POINT OF CARE 143 MG/DL (70-110)
[2019-11-13 18:48] LABS: GLUCOMETER DEV NAME(LOC) 5N.1; GLUCOSE,POINT OF CARE 201 MG/DL (70-110)
[2019-11-13 20:00] VITALS: BP 133/93
[2019-11-13 21:48] LABS: GLUCOMETER DEV NAME(LOC) 5N.1; GLUCOSE,POINT OF CARE 218 MG/DL (70-110)
[2019-11-13] MEDS: LORazepam 2 MG/ML VIAL IVP PRN (23:55)
[2019-11-14] VITALS: BP 102/78
[2019-11-14] MEDS: MORPHINE SULFATE 2 MG/ML SYRINGE IVP PRN ×5 (01:17→16:37)
[2019-11-14 04:00] VITALS: BP 157/78
[2019-11-14] MEDS: MetroNIDAZOLE 500 MG/NACL 100 ML IV SCH ×3 (06:06→21:01)
[2019-11-14] MEDS: MethylPREDNISolone SOD SUCC 125 MG/2 ML VIAL IVP SCH ×3 (06:07→16:37)
[2019-11-14] MEDS: INSULIN LISPRO 100 UNITS/ML SQ PRN ×3 (06:22→21:05)
[2019-11-14 06:40] LABS: BASOPHILS % (AUTO) 0.1 % (0.0-2.0); EOSINOPHILS % (AUTO) 0 % (1.0-6.0); HEMATOCRIT 26.7 % (41-53); HEMOGLOBIN 8.9 g/dL (13.5-17.5); LYMPHOCYTES # (AUTO) 0.1 K/uL (1.0-4.8); LYMPHOCYTES % (AUTO) 0.8 % (22.0-44.0); MEAN CORPUSCULAR HEMOGLOBIN 29.7 pg (26.0-34.0); MEAN CORPUSCULAR HGB CONC 33.4 G/dL (31.0-37.0); MEAN CORPUSCULAR VOLUME 89 fL (80-100); MONOCYTES # (AUTO) 0.4 K/uL (0.1-1.0); NEUTROPHILS # (AUTO) 11.8 K/uL (1.8-7.7); PLATELET COUNT (AUTO) 198 K/uL (150-450); RED CELL DISTRIBUTION WIDTH 17.5 % (11.5-14.5)
[2019-11-14 06:41] LABS: NEUTROPHILS % (AUTO) 96.1 % (40.0-70.0)
[2019-11-14 06:45] LABS: CALCIUM, TOTAL 8.1 mg/dL (8.8-10.5); CREATININE 4.44 mg/dL (0.60-1.30); MAGNESIUM 2.5 mg/dL (1.80-2.40)
[2019-11-14 06:47] LABS: POTASSIUM 2.8 mmol/L (3.5-5.1)
[2019-11-14 08:00] VITALS: BP 127/63
[2019-11-14 08:07] LABS: GLUCOMETER DEV NAME(LOC) 5N.1; GLUCOSE,POINT OF CARE 260 MG/DL (70-110)
[2019-11-14] MEDS: DOCUSATE SODIUM 100 MG CAPSULE PO SCH ×2 (09:00→21:00)
[2019-11-14] MEDS: ISOSORBIDE MONONITRATE 30 MG ER TABLET PO SCH (09:00)
[2019-11-14] MEDS: LORazepam 2 MG/ML VIAL IVP PRN ×3 (09:57→16:56)
[2019-11-14] MEDS: ROSUVASTATIN CALCIUM 20 MG TABLET PO SCH (10:02)
[2019-11-14] MEDS: ASCORBIC ACID 500 MG TABLET PO SCH ×3 (10:02→21:00)
[2019-11-14] MEDS: ZINC GLUCONATE 50 MG TABLET PO SCH (10:02)
[2019-11-14] MEDS: PANTOPRAZOLE SODIUM 40 MG DR TABLET PO SCH (10:02)
[2019-11-14] MEDS: ASPIRIN 81 MG EC TABLET PO SCH (10:02)
[2019-11-14] MEDS: THIAMINE HCL 100 MG/ML 2ML VIAL IVP SCH ×2 (10:02→21:01)
[2019-11-14] MEDS: POTASSIUM CHL 10 MEQ/WATER 50 ML IV SCH ×3 (10:27→13:15)
[2019-11-14] MEDS: DEXTROSE 5%-WATER 1,000 ML IV SCH (11:58)
[2019-11-14 12:00] VITALS: BP 125/74
[2019-11-14] MEDS ORDERED: SODIUM CHLORIDE 0.9% 250 ML IV ONE (14:46)
[2019-11-14 16:00] VITALS: BP 127/74
[2019-11-14] MEDS: CefTAZidime PENTAHYDRATE 1 GM in DEXTROSE 5%-WATER 50 ML IV SCH (16:37)
[2019-11-14 21:09] LABS: GLUCOMETER DEV NAME(LOC) 5N.1; GLUCOSE,POINT OF CARE 299 MG/DL (70-110)
[2019-11-14 21:09] LABS: GLUCOMETER DEV NAME(LOC) 5N.1; GLUCOSE,POINT OF CARE 264 MG/DL (70-110)
[2019-11-15] VITALS: BP 150/98
[2019-11-15] MEDS: MethylPREDNISolone SOD SUCC 125 MG/2 ML VIAL IVP SCH ×4 (00:11→17:38)
[2019-11-15 04:00] VITALS: BP 151/76
[2019-11-15] MEDS: MetroNIDAZOLE 500 MG/NACL 100 ML IV SCH ×2 (06:03→14:20)
[2019-11-15] MEDS: INSULIN LISPRO 100 UNITS/ML SQ PRN ×3 (06:04→17:55)
[2019-11-15 06:57] LABS: GLUCOMETER DEV NAME(LOC) 5N.1; GLUCOSE,POINT OF CARE 289 MG/DL (70-110)
[2019-11-15 06:57] LABS: GLUCOMETER DEV NAME(LOC) 5N.2; GLUCOSE,POINT OF CARE 266 MG/DL (70-110)
[2019-11-15 08:00] VITALS: BP 147/82
[2019-11-15] MEDS: THIAMINE HCL 100 MG/ML 2ML VIAL IVP SCH (08:25)
[2019-11-15] MEDS: PANTOPRAZOLE SODIUM 40 MG DR TABLET PO SCH (08:25)
[2019-11-15] MEDS: ASPIRIN 81 MG EC TABLET PO SCH (08:25)
[2019-11-15] MEDS: ISOSORBIDE MONONITRATE 30 MG ER TABLET PO SCH (08:25)
[2019-11-15] MEDS: ZINC GLUCONATE 50 MG TABLET PO SCH (08:26)
[2019-11-15] MEDS: DOCUSATE SODIUM 100 MG CAPSULE PO SCH (08:26)
[2019-11-15] MEDS: ASCORBIC ACID 500 MG TABLET PO SCH ×2 (08:26→17:35)
[2019-11-15] MEDS: ROSUVASTATIN CALCIUM 20 MG TABLET PO SCH (08:26)
[2019-11-15] MEDS: MORPHINE SULFATE 2 MG/ML SYRINGE IVP PRN ×3 (08:27→17:40)
[2019-11-15] MEDS ORDERED: EPOETIN ALFA 10,000 UNITS/ML VIAL SQ SCH (09:00)
[2019-11-15 12:00] VITALS: BP 139/93
[2019-11-15] MEDS: DEXTROSE 5%-WATER 1,000 ML IV SCH (14:20)
[2019-11-15 16:00] VITALS: BP 128/56
[2019-11-15] MEDS: CefTAZidime PENTAHYDRATE 1 GM in DEXTROSE 5%-WATER 50 ML IV SCH (17:35)
[2019-11-15 17:54] LABS: GLUCOMETER DEV NAME(LOC) 5N.1; GLUCOSE,POINT OF CARE 314 MG/DL (70-110)
[2019-11-15] MEDS ORDERED: MORPHINE SULFATE 100 MG/NS/PF 100 ML IV PRN (19:28)
[2019-11-15] MEDS ORDERED: DiphenhydrAMINE HCL 50 MG/ML VIAL IVP PRN (19:30)
[2019-11-15 20:26] VITALS: BP 107/51
[2019-11-16 06:42] LABS: GLUCOMETER DEV NAME(LOC) 5N.2; GLUCOSE,POINT OF CARE 324 MG/DL (70-110)
== END 2019-11-16 00:10 | disposition expired | DRG 871 ==
LOC: EMS 19:39 → 5N 22:35 → ICU 11-10 05:25 → 5N 11-11 11:30
PROVIDERS: ADMIT Internal Medicine; ATTEND Internal Medicine
DX: A41.89 Other specified sepsis (principal); U07.1 COVID-19; N17.0 Acute kidney failure with tubular necrosis; J12.89 Other viral pneumonia; J96.01 Acute respiratory failure with hypoxia; E87.0 Hyperosmolality and hypernatremia; I25.10 Atherosclerotic heart disease of native coronary artery without angina pectoris; N40.0 Benign prostatic hyperplasia without lower urinary tract symptoms; I12.9 Hypertensive chronic kidney disease with stage 1 through stage 4 chronic kidney disease, or unspecified chronic kidney disease; D64.9 Anemia, unspecified; E87.6 Hypokalemia; Z66 Do not resuscitate; F03.90 Unspecified dementia, unspecified severity, without behavioral disturbance, psychotic disturbance, mood disturbance, and anxiety; E78.5 Hyperlipidemia, unspecified; E11.22 Type 2 diabetes mellitus with diabetic chronic kidney disease; I46.9 Cardiac arrest, cause unspecified; H91.90 Unspecified hearing loss, unspecified ear; N18.3 Chronic kidney disease, stage 3 (moderate); D63.8 Anemia in other chronic diseases classified elsewhere; Z79.899 Other long term (current) drug therapy
CPT/HCPCS: 36600; 71250; 74018; 76770; 82271; 82570; 82728; 82805; 83605; 83615; 83735; 84100; 84145; 84156; 84300; 84540; 85379; 85384; 85651; 86140; 86850; 86900; 86901; 86923; 87040; 87081; 87449; 87635; 87899; 92610; 93005; G0378; J0696; J0713; J0885; J1644; J2060; J2270; J2543; J2930; J3411; J3480; J3490; J7030; J7040; J7050; J7060; P9016